=== PATIENT | male | born 1965 | race Caucasian/White ===

== ENCOUNTER 2020-08-25 16:15 | Outpatient (CLI) | payer OTHER, SELFPAY | END 2020-08-25 16:16 | disposition home or self-care (01) | PROVIDERS: PCP Internal Medicine | DX: Z23 Encounter for immunization (principal) | CPT/HCPCS: 0001A; 91300 ==

== ENCOUNTER 2020-09-15 16:09 | Outpatient (CLI) | payer OTHER, SELFPAY | END 2020-09-15 16:10 | disposition home or self-care (01) | PROVIDERS: PCP Internal Medicine | DX: Z23 Encounter for immunization (principal) | CPT/HCPCS: 0001A; 0002A; 91300 ==